=== PATIENT | female | born 1940 | race Caucasian/White ===

== ENCOUNTER 2016-03-22 11:51 | Inpatient (IN) | payer MEDICARE, BC ==
[~2016-03-22] VITALS: Ht 165.1 cm; Wt 84.3 kg
[~2016-03-22 11:51] MED LIST: AZO-CRANBERRY450 MG REC; BIOTIN1 MG PO; CENTRUM1 TAB PO; FISH OIL CONC1000 MG PO; FOLIC ACID PO; GLUCOSAMINE PO; GLUCOSAMINE/CHONDROI PO; GRAPE SEED EXTRACT; HCTZ 25MG TAB25 MG PO; HCTZ 25MG25 MG PO; IBUPROFEN600 MG PO; NASONEX SPRAY NAS; NASONEX SPRAY17 GM NS; OSCAL 500MG/VI500 MG PO; PROTONIX 40MG T40 MG PO; REGLAN 5MG T5 MG/TAB PO; TOPROL XL 50MG50 MG PO; TOPROL XL50 MG PO; TUMERIC PO; TYLENOL 325MG325 MG PO; VITAMIN D; VITAMIN E-400200 IU PO; [UNRECOGNIZED DRUG - OTHER] PO
[2016-05-22] VITALS (11 sets, daily range): BP systolic 106–135; BP diastolic 55–72; PULSE 46–78; TEMP 98–98.2
[2016-05-23] VITALS (7 sets, daily range): BP systolic 113–128; BP diastolic 46–61; PULSE 62–79; TEMP 97.5–98.6
[2016-05-23 07:18] LABS: HEMOGLOBIN 11.3 g/dl (12.5-16.0)
[2016-05-24 05:23] VITALS: BP 119/52; PULSE 78; TEMP 98.6
[2016-05-24 06:41] LABS: HEMATOCRIT 31.7 % (37.0-47.0); HEMOGLOBIN 10.5 g/dl (12.5-16.0)
[2016-05-24 07:24] VITALS: BP 128/50; PULSE 73; TEMP 98.6
[2016-05-24 15:36] VITALS: BP 115/64; PULSE 85; TEMP 99
[2016-05-24 20:39] VITALS: BP 141/57; PULSE 84; TEMP 100.2
[2016-05-25 03:28] VITALS: BP 128/49; PULSE 73; TEMP 99
[2016-05-25 07:20] VITALS: BP 133/57; PULSE 98; TEMP 98.2
[2016-05-25 07:39] LABS: HEMATOCRIT 34.3 % (37.0-47.0); HEMOGLOBIN 11.4 g/dl (12.5-16.0)
[2016-05-25 11:38] VITALS: BP 112/63; PULSE 70; TEMP 98.3
[2016-05-25] MEDS ORDERED: NORCO 325 MG-7.1 TAB PO (13:45)
[2016-05-25] MEDS ORDERED: XARELTO10 MG PO (13:45)
[2016-05-25] MEDS ORDERED: ROXICODONE 55 MG/TAB PO (13:46)
== END 2016-05-25 14:30 | disposition home or self-care (01) | DRG 470 ==
LOC: JCC 05-22 08:35
PROVIDERS: Orthopaedic Surgery
PROC: 0SRC0J9 Replacement of Right Knee Joint with Synthetic Substitute, Cemented, Open Approach (ICD-10-PCS; principal; 2016-05-22 13:10)
DX: M17.11 Unilateral primary osteoarthritis, right knee (principal); I10 Essential (primary) hypertension; Z87.891 Personal history of nicotine dependence
CPT/HCPCS: A4315; A9284; C1713; C1776; J1100; J2250; J2405; J2704; J2765; J3010; J7120

== ENCOUNTER → 2016-04-14 | Outpatient (CLI) | payer MEDICARE, BC ==
[~2016-04-14] MED LIST changes: +FLEXERIL 1010 MG/TAB PO; +NORCO 325 MG-7.1 TAB PO; +PERCOCET 325 MG1 TA2 PO; +ROXICODONE 55 MG/TAB PO; +XARELTO10 MG PO
== END ==
LOC: MC.RAD 11:03
DX: Z12.31 Encounter for screening mammogram for malignant neoplasm of breast (principal)

== ENCOUNTER → 2016-05-15 | Outpatient (CLI) | payer MEDICARE, BC ==
[2016-05-15 14:02] LABS: HIV 1/2 Antibodies Non-Reactive; HIV-1p24 Antigen Non-Reactive
== END ==
LOC: COL.LAB 12:54
PROVIDERS: Orthopaedic Surgery
DX: Z01.812 Encounter for preprocedural laboratory examination (principal); M25.861 Other specified joint disorders, right knee

== ENCOUNTER 2016-05-18 11:03 | Outpatient (RCR) | payer MEDICARE, BC ==
[~2016-05-18 11:03] MED LIST changes: -FLEXERIL 1010 MG/TAB PO; -NORCO 325 MG-7.1 TAB PO; -PERCOCET 325 MG1 TA2 PO; -ROXICODONE 55 MG/TAB PO; -XARELTO10 MG PO
== END 2016-05-18 12:56 | disposition still patient (30) ==
LOC: MKS.ESL.PT 11:03
DX: Z01.818 Encounter for other preprocedural examination (principal); M17.11 Unilateral primary osteoarthritis, right knee
CPT/HCPCS: G8978-GP; G8979-GP; G8980-GP

== ENCOUNTER 2016-07-14 11:15 | Outpatient (RCR) | payer MEDICARE, BC ==
[~2016-07-14 11:15] MED LIST changes: +NORCO 325 MG-7.1 TAB PO; +ROXICODONE 55 MG/TAB PO; +XARELTO10 MG PO
== END 2016-07-14 12:07 | disposition home or self-care (01) ==
LOC: MKS.ESL.PT 11:15
DX: Z47.89 Encounter for other orthopedic aftercare (principal); M25.861 Other specified joint disorders, right knee
CPT/HCPCS: G0283-GP; G8978-GP; G8979-GP; G8980-GP

== ENCOUNTER 2016-11-19 09:11 | Emergency (ER) | payer MEDICARE, BC ==
[~2016-11-19] VITALS: Ht 162.6 cm; Wt 80.9 kg
[2016-11-19 09:16] VITALS: BP 141/63; TEMP 97.9
[2016-11-19 10:42] LABS: PH 6 (5-8); SQUAMOUS EPITHELIAL 0-2 /hpf; URINE APPEARANCE Clear; URINE BACTERIA None Seen /hpf; URINE BILIRUBIN Negative (NEGATIVE); URINE BLOOD Negative (NEGATIVE); URINE COLOR Yellow; URINE GLUCOSE Negative (NEGATIVE); URINE KETONE Negative (NEGATIVE); URINE RBC 0-2 /hpf; URINE UROBILINOGEN Negative (NEGATIVE); URINE WBC 0-2 /hpf
[2016-11-19] MEDS ORDERED: PERCOCET 325 MG1 TA2 PO (11:07)
[2016-11-19] MEDS ORDERED: FLEXERIL 1010 MG/TAB PO (11:07)
[2016-11-19 11:31] VITALS: PULSE 65
== END 2016-11-19 11:32 | disposition home or self-care (01) ==
LOC: COL.ER 09:11
PROVIDERS: Emergency Medicine
DX: M54.42 Lumbago with sciatica, left side (principal); X50.0XXA Overexertion from strenuous movement or load, initial encounter; I10 Essential (primary) hypertension
CPT/HCPCS: J1170

== ENCOUNTER 2017-03-27 17:21 | Emergency (ER) | payer MEDICARE, BC ==
[~2017-03-27] VITALS: Ht 165.1 cm; Wt 83.6 kg
[~2017-03-27 17:21] MED LIST changes: +FLEXERIL 1010 MG/TAB PO; +PERCOCET 325 MG1 TA2 PO
[2017-03-27 17:22] VITALS: TEMP 97.8
[2017-03-27 19:11] VITALS: BP 176/83; PULSE 74
== END 2017-03-27 19:00 | disposition home or self-care (01) ==
LOC: COL.ER 17:21
DX: S82.832A Other fracture of upper and lower end of left fibula, initial encounter for closed fracture (principal); S93.02XA Subluxation of left ankle joint, initial encounter; I10 Essential (primary) hypertension; W10.9XXA Fall (on) (from) unspecified stairs and steps, initial encounter; Y92.009 Unspecified place in unspecified non-institutional (private) residence as the place of occurrence of the external cause
CPT/HCPCS: J2405; J3010

== ENCOUNTER → 2017-07-06 | Outpatient (CLI) | payer MEDICARE, BC | LOC: MC.RAD 04-16 10:40 | DX: Z12.31 Encounter for screening mammogram for malignant neoplasm of breast (principal) ==

== ENCOUNTER 2017-08-02 13:45 | Outpatient (RCR) | payer MEDICARE, BC | END 2017-08-03 15:32 | disposition home or self-care (01) | LOC: MKS.ESL.PT 13:45 | DX: Z47.89 Encounter for other orthopedic aftercare (principal); M25.511 Pain in right shoulder; Z96.698 Presence of other orthopedic joint implants | CPT/HCPCS: G8978-GP; G8979-GP; G8980-GP ==

== ENCOUNTER → 2018-06-05 | Outpatient (CLI) | payer MEDICARE, BC | LOC: COL.RAD 09:52 | DX: J98.4 Other disorders of lung (principal) ==

== ENCOUNTER 2018-07-05 14:17 | Inpatient (IN) | payer MEDICARE, BC ==
[~2018-07-05] VITALS: Ht 172.7 cm; Wt 89.0 kg
[2018-07-05] MEDS ORDERED: COREG12.5 MG PO (15:16)
[2018-07-05] MEDS ORDERED: CELEXA 20MG20 MG/TAB (15:16)
[2018-07-05 16:16] LABS: BASO # 0.1 (0.0-0.2); BASO % 0.3 % (0.0-2.0); EOS # 0.1 (0.0-0.7); EOS % 0.3 % (0-4.0); GRAN # 18.9 (1.4-6.5); GRAN % 81.4 % (42.2-75.2); HEMATOCRIT 37.6 % (37.0-47.0); HEMOGLOBIN 12.6 g/dl (12.5-16.0); LYMPH # 1.3 (1.2-3.4); LYMPH % 5.5 % (20.0-51.0); MEAN CELL VOLUME 87 fl (80.0-100.0); MEAN CORPUSCULAR HEMOGLOBIN 29 pg (27.0-31.0); MEAN CORPUSCULAR HGB CONC 34 g/dl (33.0-37.0); MEAN PLATELET VOLUME 8.9 fl (7.4-10.4); MONO # 2.8 (0.1-0.6); MONO % 12.1 % (1.7-9.3); PLATELET COUNT 282 K/mm3 (130-400); RED BLOOD COUNT 4.32 M/mm3 (4.10-5.30); REDCELL DISTRIBUTION WIDTH-CV 13.9 % (11.5-14.5)
[2018-07-05 16:37] LABS: BILIRUBIN,TOTAL 0.6 mg/dL (0.0-1.0); CALCIUM 8.9 mg/dL (8.4-10.2); CREATININE, serum 1.27 (0.52-1.25); TOTAL PROTEIN 7.6 gm/dL (6.4-8.2)
[2018-07-05 16:53] LABS: C-REACTIVE PROTEIN 15.8 mg/dL (0.0-0.9)
--- NOTE | 2018-07-05 19:30 | NUR ---
Completed assessment, admission, and medication administration with PT; PT tolerated all cares and questions well; PT A&O x4, BS active x4; LCTA with diminished bases bilaterally; IND AMB unassissted; chronic intermittent incontinence with use of protection briefs; PT able to communicate care concerns and needs; PT verbalized full code option without intubation during interview with OPERATIONS COORDINATOR; PT able to tolerated clear snacks to tolerated medications; No further needs assessed at this time; LL ABD pain assessed 6/10 with movement or coughing; IV NC running at 125ml/hr to left wrist with INT ABX; PT assisted to comfortable position in bed with call light within reach; Will continue to monitor. CDA
[2018-07-05 20:00] VITALS: BP 129/50; PULSE 93; TEMP 98.6
[2018-07-05] MEDS ORDERED: LEXAPRO 5MG5 MG PO (21:28)
[2018-07-05] MEDS ORDERED: LEXAPRO 10MG10 MG PO (21:29)
[2018-07-05] MEDS ORDERED: HYOPHEN1 TAB PO (21:32)
[2018-07-05] MEDS ORDERED: MULTI VITAMINS1 TAB PO (21:33)
[2018-07-05] MEDS ORDERED: OSCAL 500 TAB500 MG PO (21:34)
[2018-07-05] MEDS ORDERED: VITAMIN D 400400 IU PO (21:34)
[2018-07-05] MEDS ORDERED: OMEGA-31 SGL PO (21:34)
[2018-07-05] MEDS ORDERED: HAIRSKINNAILS PO (21:35)
[2018-07-05 22:23] LABS: COLLECTION METHOD CLEAN CATCH
[2018-07-05 22:34] LABS: AMORPHOUS CRYSTAL Present /uL; MUCOUS Present /lpf; PH 5 (5-8); SQUAMOUS EPITHELIAL 0-2 /hpf; URINE APPEARANCE Turbid; URINE BACTERIA None Seen /hpf; URINE BILIRUBIN Negative (NEGATIVE); URINE BLOOD 1+ (NEGATIVE); URINE COLOR Yellow; URINE GLUCOSE Negative (NEGATIVE); URINE KETONE Trace (NEGATIVE); URINE LEUKOCYTE ESTERASE 2+ (NEGATIVE); URINE NITRATE Negative (NEGATIVE); URINE PROTEIN(semi-quant) Negative (NEGATIVE); URINE RBC None Seen /hpf
[2018-07-05 22:44] VITALS: BP 129/50; PULSE 93; TEMP 98.6
[2018-07-05 23:07] VITALS: BP 129/50; PULSE 93; TEMP 98.6
[2018-07-06] VITALS (9 sets, daily range): BP systolic 105–158; BP diastolic 46–78; PULSE 71–90; TEMP 97.8–101.2
--- NOTE | 2018-07-06 04:45 | NUR ---
PT resting in bed; Denies immedicate pain; Continues to use restroom intermittently throughout the night; CDiff positive per specimen; Contact ISO in place; NS at 125ml/hr to left wrist IV continues without compliant or redness; No further complaints at time of exit; PT able to return to a comfortable position in bed with call light within reach; Will continue to monitor. CDA
[2018-07-06 06:33] LABS: BASO # 0.1 (0.0-0.2); BASO % 0.3 % (0.0-2.0); EOS # 0.1 (0.0-0.7); EOS % 0.6 % (0-4.0); GRAN # 13.6 (1.4-6.5); GRAN % 75.2 % (42.2-75.2); HEMOGLOBIN 10.7 g/dl (12.5-16.0); LYMPH # 2.5 (1.2-3.4); LYMPH % 14.1 % (20.0-51.0); MEAN CELL VOLUME 87 fl (80.0-100.0); MEAN CORPUSCULAR HEMOGLOBIN 29 pg (27.0-31.0); MEAN CORPUSCULAR HGB CONC 33 g/dl (33.0-37.0); MEAN PLATELET VOLUME 9.5 fl (7.4-10.4); MONO # 1.7 (0.1-0.6); MONO % 9.2 % (1.7-9.3); PLATELET COUNT 255 K/mm3 (130-400); RED BLOOD COUNT 3.71 M/mm3 (4.10-5.30)
[2018-07-06 06:36] LABS: HEMATOCRIT 32.3 % (37.0-47.0)
[2018-07-06 06:43] LABS: CALCIUM 7.9 mg/dL (8.4-10.2); CREATININE, serum 1.24 (0.52-1.25); POTASSIUM 3.5 mmol/L (3.4-5.0)
--- NOTE | 2018-07-06 06:58 | NUR ---
Report given to MARYANN Crawley; No significant changes or concerns at shift change. CDA
--- NOTE | 2018-07-06 08:00 | NUR ---
PATIENT ASSESSMENT COMPLETED. SHE COMPLAINS OF NAUSEA WILL PROVIDE PRN MEDICATION. WILL TRY TO EAT A PIECE OF TOAST BEFORE SHE TAKES HER AM PILLS
--- NOTE | 2018-07-06 11:39 | NUR ---
Provided spiritual care, visited and prayed with the patient.
--- NOTE | 2018-07-06 11:57 | NUR ---
Plan: Patient plans to return home with her and DTR-law. Assessment: SW met with patient about DC plan. Patient reports that her Roland is her care support and DPOA. Patient reports that she obtain RX from [facility] and her PCP is Emerita Titus. Patient reports that her spouse of jada will transport her home. Patient declined the need or use of home health services. Patient denied the use of need for DME. Patient denies having any care concerns at this time. Action: No additional needs identified. SW educated patient on local resources.
--- NOTE | 2018-07-06 12:03 | NUR ---
PATIENT IS NAUSEATED AND COMPLAINS OF FEELING ALOT OF ABDOMEN CRAMPS. SHE IS ALSO ANXOUS, AND REQUESTED THE ATIVAN AT THIS TIME. 0.5MG IVP WAS GIVEN. DAUGHTER IN LAW AT BEDSIDE.
--- NOTE | 2018-07-06 14:30 | NUR ---
PATIENT RESTING IN BED.
--- NOTE | 2018-07-06 15:21 | NUR ---
PATIENT SLEEPING IN THE BED. NO SIGNS OF DISTRESS NOTED
--- NOTE | 2018-07-06 17:29 | NUR ---
PATIENT STILL HAS SOME NAUSEA. SHE IS WILLING TO TAKE HER ORAL MEDICATIONS AND REQUESTED PRN TYLENOL FOR ABDOMEN PAIN - THIS WORSENS WITH ACTIVITY. SHE IS VERY TIRED. ALERT AND ORIENTED. EASILY FALLS BACK TO SLEEP.
--- NOTE | 2018-07-06 22:52 | NUR ---
Completed assessment and medication administration; PT tolerated all cares well; reported fever addressed and reported to on-call; No free water continues; PT reported on-going frequent stools with intermittent abdominal cramping to left side rated between 4-6; decrease in nausea with administration of PRN medication; PT A&Ox4, BS active x4, LTAB with bilateral diminished bases; NS continues to left wrist IV at 125ml/hr; room temperature and multiple blankets removed r/t increase body temperature; No further reported or assessed concerns at time of exit; PT assisted to comfortable position in bed with call light within reach; Will continue to monitor. CDA
[2018-07-07 04:04] VITALS: BP 142/47; PULSE 90; TEMP 97.9
--- NOTE | 2018-07-07 04:19 | NUR ---
PT resting well in bed; IV changed to 22G LFA; PT continues to have the need to toilet multiple times thoughout the night with minimal output; LLQ pain continues without requested PRN pain medication; NS continues to IV at 125ml/hr; No further needs at time of exit; PT returned to a comfortable position in bed with call light within reach; Will continue to monitor. CDA
--- NOTE | 2018-07-07 06:52 | NUR ---
Report given to MARYANN Crawley; No significant changes or concerns at shift change. CDA
[2018-07-07 07:24] VITALS: BP 140/60; PULSE 85; TEMP 99.5
--- NOTE | 2018-07-07 08:30 | NUR ---
PATIENT IN THE RESTROOM AGAIN. THIS IS THE THIRD TIME THAT I HAVE TRIED TO COME IN THE ROOM AND SHE IS IN THE RESTROOM. SHE STATES SHE IS IN AND OUT OF THE RESTROOM ALOT, VOLUME OF STOOL HAS INCREASED. SHE IS NAUSEATED AND REQUESTING MEDICATION. I HAVE CALLED PHARMACY TO HAVE THEM BRING ME PHENERGAN. SHE STATES SHE JUST DOESN'T FEEL WELL.
[2018-07-07 09:18] LABS: MEAN CELL VOLUME 86 fl (80.0-100.0); MEAN CORPUSCULAR HEMOGLOBIN 29 pg (27.0-31.0); MEAN CORPUSCULAR HGB CONC 34 g/dl (33.0-37.0); MEAN PLATELET VOLUME 9.1 fl (7.4-10.4); PLATELET COUNT 263 K/mm3 (130-400); RED BLOOD COUNT 3.76 M/mm3 (4.10-5.30)
--- NOTE | 2018-07-07 09:20 | NUR ---
PATIENT ASSESSMENT COMPLETED. PRN PHENERGAN GIVEN AT THIS TIME PER REQUEST. SHE IS STILL NAUSEATED AND DOESN'T WANT TO TAKE ANY OTHER MEDICATIONS EXCEPT CARVIDEL AND LEXAPRO. FALLS BACK TO SLEEP EASILY. REPORTS THE ROOM IS HOT AND NEEDS MORE AIR FLOW. I WILL PULL THE CURTAIN AND LEAVE THE DOOR OPEN TO GET SOME AIR IN THE ROOM. UNABLE TO PUT A FAN IN THE ROOM SINCE SHE IS IN ISOLATION. SHE DENIES WANTING TO EAT ANY CLEAR LIQUIDS, SHE IS DRINKING CLEAR PEDIALYTE THAT HER DAUGHTER IN LAW BROUGHT IN.
[2018-07-07 09:25] LABS: HEMATOCRIT 32.5 % (37.0-47.0)
[2018-07-07 09:30] LABS: CALCIUM 7.6 mg/dL (8.4-10.2); POTASSIUM 3.4 mmol/L (3.4-5.0)
[2018-07-07 09:58] LABS: BAND 23 % (0-10); LYMPHOCYTE 7 % (20.0-51.0); NEUTROPHILS 60 % (42.0-75.2)
[2018-07-07 09:59] LABS: PLATELET ESTIMATE NORMAL (NORMAL)
[2018-07-07 11:14] VITALS: BP 131/43; PULSE 82; TEMP 98.5
[2018-07-07 15:14] VITALS: BP 123/48; PULSE 78; TEMP 99
--- NOTE | 2018-07-07 15:28 | NUR ---
STOOL SPECIMEN IS COLLECTED AND SENT TO THE LAB BY ASHLYN LINARES
[2018-07-07 20:13] VITALS: BP 138/55; PULSE 78; TEMP 99.3
[2018-07-08] VITALS (7 sets, daily range): BP systolic 114–151; BP diastolic 42–55; PULSE 67–83; TEMP 98.6–99.3
--- NOTE | 2018-07-08 00:17 | NUR ---
Patient denies having pain and discomfort at this time. Reports having 3 loose stools so far this shift. Voices no needs or concerns at this time. Continues on contact isolation. Resting in bed with eyes closed at this time. Call light is within reach.
--- NOTE | 2018-07-08 03:01 | NUR ---
Patient had another episode of loose stools. Does report that even though she was having a loose stool, she does "somehow feel a little better." Denies having pain and discomfort. Resting in bed with eyes closed at this time. Call light is within reach.
--- NOTE | 2018-07-08 06:17 | NUR ---
Continues to have loose stools throughout the night. Has had 1 more since last note. Voices no needs or concerns at this time. Resting in bed with eyes closed at this time. Call light is within reach.
[2018-07-08 06:30] LABS: BASO % 0.3 % (0.0-2.0); EOS # 0.3 (0.0-0.7); EOS % 1.9 % (0-4.0); GRAN # 11.3 (1.4-6.5); GRAN % 73.6 % (42.2-75.2); HEMOGLOBIN 10.7 g/dl (12.5-16.0); LYMPH # 2.3 (1.2-3.4); LYMPH % 15.3 % (20.0-51.0); MEAN CELL VOLUME 86 fl (80.0-100.0); MEAN CORPUSCULAR HEMOGLOBIN 29 pg (27.0-31.0); MEAN CORPUSCULAR HGB CONC 34 g/dl (33.0-37.0); MONO # 1.2 (0.1-0.6); PLATELET COUNT 250 K/mm3 (130-400); RED BLOOD COUNT 3.66 M/mm3 (4.10-5.30); REDCELL DISTRIBUTION WIDTH-CV 14.2 % (11.5-14.5)
[2018-07-08 06:31] LABS: HEMATOCRIT 31.4 % (37.0-47.0)
[2018-07-08 06:42] LABS: ALBUMIN 2.8 gm/dL (3.5-5.0); BILIRUBIN,TOTAL 0.3 mg/dL (0.0-1.0); CALCIUM 7.5 mg/dL (8.4-10.2); CREATININE, serum 0.9 (0.52-1.25); POTASSIUM 3.1 mmol/L (3.4-5.0); TOTAL PROTEIN 5.6 gm/dL (6.4-8.2)
--- NOTE | 2018-07-08 12:55 | NUR ---
Patient assessment complete. Patient has had an echo earlier and walked laps in the room with PT. Patient states she gets a little SOB after a few laps. Patient denies chest pain, numbness, tingling and pain. Patient was nauseous this morning and had a little bit of a hard time with morning medications. Encouraging her to drink pedialyte, daughter in law brought in. States she is hungry but nauseous.
--- NOTE | 2018-07-08 20:21 | NUR ---
PT RESTING IN BED A+OX4. REPORTS NO PAIN. REPORTS A LOOSE STOOL AT THIS TIME. REPORTS SOA WHEN WALKING TO BR. NO NEEDS AT TIS TIME. SHIFT ASSESSMENT COMPLETE. CALL LIGHT INREACH
[2018-07-09] VITALS (7 sets, daily range): BP systolic 125–174; BP diastolic 49–67; PULSE 68–79; TEMP 98.1–99.1
--- NOTE | 2018-07-09 01:29 | NUR ---
PT RESTING A+OX4. REFUSED IV CHANGE AT THIS TIME. REPORT A LOOSE BM AT 0000. NO PAIN. NO NEEDS. CALL LIGHT IN REACH .
--- NOTE | 2018-07-09 05:48 | NUR ---
PT HAD AN UNEVENTFUL NIGHT. REPORTS NO PAIN. NO N/V. REPORTS 2 LOOSE STOOLS THROUGOUT NIGHT. IV FLUSHES WELL, NO REDNESS, NO SWELLING. PT EDUCATED ON WATER RESTRICTION. NO NEEDS AT THIS TIME. CALL LIGHT IN REACH.
[2018-07-09 06:17] LABS: HEMOGLOBIN 10.4 g/dl (12.5-16.0); MEAN CELL VOLUME 85 fl (80.0-100.0); MEAN CORPUSCULAR HEMOGLOBIN 29 pg (27.0-31.0); MEAN CORPUSCULAR HGB CONC 33 g/dl (33.0-37.0); MEAN PLATELET VOLUME 9.5 fl (7.4-10.4); PLATELET COUNT 288 K/mm3 (130-400); RED BLOOD COUNT 3.64 M/mm3 (4.10-5.30); REDCELL DISTRIBUTION WIDTH-CV 14.2 % (11.5-14.5)
[2018-07-09 06:18] LABS: HEMATOCRIT 31.1 % (37.0-47.0)
[2018-07-09 06:28] LABS: CALCIUM 7.9 mg/dL (8.4-10.2); CREATININE, serum 0.9 (0.52-1.25); POTASSIUM 3.7 mmol/L (3.4-5.0)
--- NOTE | 2018-07-09 06:51 | NUR ---
report given to MARYANN Patel. pt sleeping at this time.
[2018-07-09 08:12] LABS: BAND 8 % (0-10); EOSINOPHIL 1 % (0-4); LYMPHOCYTE 28 % (20.0-51.0); NEUTROPHILS 52 % (42.0-75.2); PLATELET ESTIMATE NORMAL (NORMAL)
--- NOTE | 2018-07-09 09:24 | NUR ---
Patient sitting in bed on entry. Shift assessment complete. Lungs clear bilaterally, regular heart rate and rhythm. Denies dizziness aside from first sitting up. Patient slept well, "got up once around midnight to use bathroom". Was able to tolerate 1/4 cup rice and mashed potatoes for dinner. Patient states "i look like I am 6 months . I am gassy". Patient had bowel movement, more "productive" than they have been and "darker". Patient has steady gait and independent. Patient does feel "a little nauseous but better". at bedside and patient attempting to eat breakfast. IV LFA is CDI. Call light within reach.
--- NOTE | 2018-07-09 11:00 | NUR ---
SW attended clinical rounds. Patient is stil planning to return home once she is discharged. PT has seen patient and will continue to see her while she's admitted but they do not recommend any post acute rehab or home health.
--- NOTE | 2018-07-09 12:34 | NUR ---
Patient sleeping in bed. Informed of new IV start, prior IV . 22g to the right forearm. One attempt. flushed well. Informed patient to call if there were any signs of burning or infiltration.
--- NOTE | 2018-07-09 16:34 | NUR ---
pATIENT IS RESTING IN BED, MOVING TO CHAIR TO CHANGE POSITIONS. STATES SHES IS NOT IN PAIN, JUST STILL A LITTLE NAUSEOUS. hAS BEEN ABLE TO GET DOWN SOME JELLO THIS AFTERNOON. HAS HAD ONE BOWEL MOVEMENT. BM IS DARKER AND LOOSE. BM's ARE BECOMING FURTHER APART. NO OTHER NEEDS AT THIS TIME.
--- NOTE | 2018-07-09 19:40 | NUR ---
PT resting in bed A+OX$. reports no pain. some nausea all day. reports abd feeling bloated. pt had a loose BM at 1900. no needs at this time. shoft assessment complete. call light in reach
[2018-07-10 03:40] VITALS: BP 152/62; PULSE 69; TEMP 98.9
--- NOTE | 2018-07-10 05:02 | NUR ---
pt had an uneventful night. reports no pain. reports bloating and nausea- prn zofran given. slept throughout night. pt reports one loose BM during night. no needs at this time. this nurse has no concers at this time
[2018-07-10 05:55] LABS: MEAN CELL VOLUME 84 fl (80.0-100.0); MEAN CORPUSCULAR HEMOGLOBIN 29 pg (27.0-31.0); MEAN CORPUSCULAR HGB CONC 34 g/dl (33.0-37.0); MEAN PLATELET VOLUME 9.3 fl (7.4-10.4); PLATELET COUNT 317 K/mm3 (130-400); RED BLOOD COUNT 3.79 M/mm3 (4.10-5.30); REDCELL DISTRIBUTION WIDTH-CV 14.4 % (11.5-14.5)
[2018-07-10 06:12] LABS: CALCIUM 8.2 mg/dL (8.4-10.2); CREATININE, serum 0.84 (0.52-1.25); POTASSIUM 3.3 mmol/L (3.4-5.0)
--- NOTE | 2018-07-10 07:12 | NUR ---
report given to MARYANN Brower
[2018-07-10 07:17] VITALS: BP 140/51; PULSE 70; TEMP 99.1
[2018-07-10 07:24] LABS: EOSINOPHIL 2 % (0-4); LYMPHOCYTE 17 % (20.0-51.0); NEUTROPHILS 75 % (42.0-75.2); PLATELET ESTIMATE NORMAL (NORMAL)
--- NOTE | 2018-07-10 09:10 | NUR ---
Pt alert and oriented. Pt states she is still nauseaous but no actual vomitting this am. Pt able to drink apple juice and keep down some crackers. Pt remains on contact precautions and abx tx for Cdiff. Pt had a soft BM x1 this am and none through the night per pt. Pt reports bottom is red and using cream and wipes. Pt IV patent and no infiltration or redness noted. Pt has call light in reach and denies needs. Pt states Zofran does not help with nausea.
--- NOTE | 2018-07-10 10:00 | NUR ---
Pt IV infiltrated when flushed with NS. IV RF discontinued. Tip intact and 1 on scale of infiltration and 0 phlebitis. New IV in LW 22g started x 1 attempt. No redness or infiltration noted. Pt has call light in reach and denies needs.
[2018-07-10 11:53] VITALS: BP 135/61; PULSE 66; TEMP 98.8
[2018-07-10 15:42] VITALS: BP 135/56; PULSE 69; TEMP 99.1
[2018-07-10 19:27] VITALS: BP 148/62; PULSE 70; TEMP 98.9
--- NOTE | 2018-07-10 19:32 | NUR ---
Pt alert and oriented. Pt stable but nausea remains but not increased. Pt tolerating PO bland foods. Pt IV patent no redness or infiltration. Pt denies pain. Pt had 2 small soft stools this shift. Pt denies diarrhea. Pt has call light in reach and remains on contact precautions.
--- NOTE | 2018-07-10 19:58 | NUR ---
PT RESTING IN BED A+OX4. REPORTS NO PAIN. NO NAUSEA AT THIS TIME. ABD BLOATING REPROTED. SHIFT ASSESSMENT COMPLETE. PT REPORTS NO NEEDS AT THIS TIME. CALL LIGHT IN REACH
[2018-07-10 23:31] VITALS: BP 152/66; PULSE 78; TEMP 99.3
[2018-07-11 03:29] VITALS: BP 154/55; PULSE 66; TEMP 98.6
[2018-07-11 06:19] LABS: CALCIUM 8.4 mg/dL (8.4-10.2); CREATININE, serum 0.87 (0.52-1.25)
--- NOTE | 2018-07-11 06:23 | NUR ---
pt had an uneventful night. reports no pain. had some heartburn during night, GI cocktail given, reported relief. reports abd feeling bloated. pt reports one semi loose stool after dinner. contact precautions in place. pt on Room air. no needs at this time. call light in reach
--- NOTE | 2018-07-11 07:15 | NUR ---
Received report, went to meet patient who is observed laying on left slide with eyes closed. Respirations are observed to be even and non-labored. Call light is within reach.
--- NOTE | 2018-07-11 07:33 | NUR ---
report given to MARYANN Hidalgo. no neeeds at this time.
[2018-07-11 08:02] VITALS: BP 151/65; PULSE 72; TEMP 98.8
[2018-07-11] MEDS ORDERED: VANCOCIN H125 MG/CAP PO (09:33)
[2018-07-11] MEDS ORDERED: COREG 25MG25 MG/TAB PO (09:33)
[2018-07-11] MEDS ORDERED: PEPCID 20MG TAB20 MG PO (09:34)
--- NOTE | 2018-07-11 10:17 | NUR ---
LILLIAN attended clinical rounds. Patient will discharge home today. LILLIAN presented IM to patient. She signed but did not request a copy.
== END 2018-07-11 12:20 | disposition home or self-care (01) | DRG 372 ==
LOC: COL.ER 14:17 → MEDICAL 18:26
PROVIDERS: Emergency Medicine; Nurse Practitioner Family; Physician Assistant; ADMIT Hospitalist
DX: A04.71 Enterocolitis due to Clostridium difficile, recurrent (principal); E87.1 Hypo-osmolality and hyponatremia; Z66 Do not resuscitate; I12.9 Hypertensive chronic kidney disease with stage 1 through stage 4 chronic kidney disease, or unspecified chronic kidney disease; N18.9 Chronic kidney disease, unspecified; K21.9 Gastro-esophageal reflux disease without esophagitis; Z85.828 Personal history of other malignant neoplasm of skin; Z87.891 Personal history of nicotine dependence; E87.6 Hypokalemia
CPT/HCPCS: 99223-AI; 99232-AI; 99233-AI; 99239; J0744; J1644; J2060; J2405; J2550; J7030; Q9967

== ENCOUNTER → 2018-07-18 | Outpatient (CLI) | payer MEDICARE, BC ==
[~2018-07-18] MED LIST changes: +CELEXA 20MG20 MG/TAB; +COREG 25MG25 MG/TAB PO; +COREG12.5 MG PO; +HAIRSKINNAILS PO; +HYOPHEN1 TAB PO; +LEXAPRO 10MG10 MG PO; +LEXAPRO 5MG5 MG PO; +MULTI VITAMINS1 TAB PO; +OMEGA-31 SGL PO; +OSCAL 500 TAB500 MG PO; +PEPCID 20MG TAB20 MG PO; +VANCOCIN H125 MG/CAP PO; +VITAMIN D 400400 IU PO
== END ==
LOC: MC.RAD 15:18
DX: Z12.31 Encounter for screening mammogram for malignant neoplasm of breast (principal)

== ENCOUNTER → 2018-08-21 | Outpatient (CLI) | payer MEDICARE, BC | LOC: COL.RAD 07:53 | DX: K52.9 Noninfective gastroenteritis and colitis, unspecified (principal); A04.72 Enterocolitis due to Clostridium difficile, not specified as recurrent; K58.0 Irritable bowel syndrome with diarrhea | CPT/HCPCS: A9541 ==

== ENCOUNTER 2018-09-12 13:03 | Outpatient (RCR) | payer MEDICARE, BC | END 2018-12-11 | disposition home or self-care (01) | LOC: WSST | DX: R13.10 Dysphagia, unspecified (principal); R12 Heartburn ==

== ENCOUNTER → 2019-01-24 | Outpatient (CLI) | payer MEDICARE, BC | LOC: COL.PUL 01-01 10:00 | DX: R05 Cough (principal) ==

== ENCOUNTER → 2019-10-28 | Outpatient (CLI) | payer MEDICARE, BC | LOC: COL.RAD 13:14 | DX: N30.20 Other chronic cystitis without hematuria (principal) ==

== ENCOUNTER 2020-10-18 04:21 | Emergency (ER) | payer MEDICARE, BC ==
[~2020-10-18] VITALS: Ht 162.6 cm; Wt 93.2 kg
[2020-10-18 04:56] VITALS: TEMP 98.7
[2020-10-18 05:35] LABS: BASO % 0.3 % (0.0-2.0); EOS # 0.4 (0.0-0.7); EOS % 4.8 % (0-4.0); GRAN # 5.6 (1.4-6.5); GRAN % 63.6 % (42.2-75.2); HEMOGLOBIN 11.3 g/dl (12.5-16.0); LYMPH # 1.6 (1.2-3.4); LYMPH % 18.4 % (20.0-51.0); MEAN CELL VOLUME 89 fl (80.0-100.0); MEAN CORPUSCULAR HEMOGLOBIN 29 pg (27.0-31.0); MEAN CORPUSCULAR HGB CONC 33 g/dl (33.0-37.0); MEAN PLATELET VOLUME 9.4 fl (7.4-10.4); MONO # 1.1 (0.1-0.6); MONO % 12.4 % (1.7-9.3); PLATELET COUNT 266 K/mm3 (130-400); RED BLOOD COUNT 3.91 M/mm3 (4.10-5.30); REDCELL DISTRIBUTION WIDTH-CV 14.5 % (11.5-14.5)
[2020-10-18 05:37] LABS: HEMATOCRIT 34.6 % (37.0-47.0)
[2020-10-18 05:45] LABS: ALBUMIN 3.5 gm/dL (3.5-5.0); BILIRUBIN,TOTAL 0.7 mg/dL (0.0-1.0); CALCIUM 9.4 mg/dL (8.4-10.2); CREATININE, serum 1.1 (0.52-1.25); POTASSIUM 4.3 mmol/L (3.4-5.0); TOTAL PROTEIN 6.8 gm/dL (6.4-8.2)
[2020-10-18 07:09] LABS: COLLECTION METHOD CLEAN CATCH
[2020-10-18 07:17] LABS: PH 6 (5-8); SQUAMOUS EPITHELIAL None Seen /hpf; URINE APPEARANCE Clear; URINE BACTERIA None Seen /hpf; URINE BILIRUBIN Negative (NEGATIVE); URINE BLOOD Negative (NEGATIVE); URINE COLOR Yellow; URINE GLUCOSE Negative (NEGATIVE); URINE KETONE Trace (NEGATIVE); URINE LEUKOCYTE ESTERASE Negative (NEGATIVE); URINE NITRATE Negative (NEGATIVE); URINE PROTEIN(semi-quant) Negative (NEGATIVE); URINE RBC 0-2 /hpf; URINE UROBILINOGEN Negative (NEGATIVE); URINE WBC None Seen /hpf
[2020-10-18 08:25] VITALS: BP 167/92; PULSE 83
== END 2020-10-18 08:25 | disposition home or self-care (01) ==
LOC: COL.ER 04:21
PROVIDERS: Personal Emergency Response Attendant
DX: M96.89 Other intraoperative and postprocedural complications and disorders of the musculoskeletal system (principal); G89.18 Other acute postprocedural pain; K21.9 Gastro-esophageal reflux disease without esophagitis; I12.9 Hypertensive chronic kidney disease with stage 1 through stage 4 chronic kidney disease, or unspecified chronic kidney disease; N18.9 Chronic kidney disease, unspecified; Z88.2 Allergy status to sulfonamides; Z88.0 Allergy status to penicillin; Z79.899 Other long term (current) drug therapy; Z88.1 Allergy status to other antibiotic agents

== ENCOUNTER 2021-08-01 13:58 | Outpatient (RCR) | payer MEDICARE, BC | END 2021-08-06 | disposition home or self-care (01) | LOC: WSST | DX: R41.3 Other amnesia (principal) ==

== ENCOUNTER → 2021-09-06 | Outpatient (RCR) | payer MEDICARE, BC | END | disposition home or self-care (01) | LOC: WSST | DX: R41.3 Other amnesia (principal) ==

== ENCOUNTER 2021-09-13 10:54 | Outpatient (RCR) | payer MEDICARE, BC | END 2021-10-06 | disposition home or self-care (01) | LOC: WSST | DX: R41.3 Other amnesia (principal) ==

== ENCOUNTER 2023-11-21 13:46 | Emergency (ER) | payer MEDICARE, BC ==
[~2023-11-21] VITALS: Ht 162.6 cm; Wt 88.6 kg
[2023-11-21 13:52] VITALS: TEMP 98.1
[2023-11-21 15:00] LABS: BASO % 0.7 % (0.0-2.0); EOS # 0.4 K/mm3 (0.0-0.7); EOS % 7.2 % (0.0-4.0); GRAN # 3.5 K/mm3 (1.4-6.5); GRAN % 56.3 % (42.2-75.2); HEMATOCRIT 37.6 % (37.0-47.0); HEMOGLOBIN 12.5 g/dl (12.5-16.0); LYMPH # 1.3 K/mm3 (1.2-3.4); LYMPH % 21.2 % (20.0-51.0); MEAN CELL VOLUME 87 fl (80.0-100.0); MEAN CORPUSCULAR HEMOGLOBIN 29 pg (27-31); MEAN CORPUSCULAR HGB CONC 33 g/dl (33.0-37.0); MEAN PLATELET VOLUME 9.3 fl (7.4-10.4); MONO # 0.9 K/mm3 (0.1-0.6); MONO % 14.4 % (1.7-9.3); PLATELET COUNT 276 K/mm3 (130-400); REDCELL DISTRIBUTION WIDTH-CV 13.9 % (11.5-14.5)
[2023-11-21 15:15] LABS: ALANINE AMINOTRANSFERASE 12 U/L (0-55); ALBUMIN 3.8 g/dL (3.4-4.8); ALKALINE PHOSPHATASE 78 U/L (40-150); ANION GAP 11 mmol/L (7-16); AST,SGOT 18 U/L (5-34); BILIRUBIN,TOTAL 0.4 mg/dL (0.2-1.2); BLOOD UREA NITROGEN 19 mg/dL (10-20); CHLORIDE 102 mEq/L (98-107); CREATININE, serum 1.81 mg/dL (0.57-1.11); GLUCOSE 113 mg/dL (70-99); POTASSIUM 4.2 mEq/L (3.5-4.5); SODIUM 134 mEq/L (136-145); TOTAL PROTEIN 7.1 g/dl (6.2-8.1)
[2023-11-21 15:32] LABS: TROPONIN-I < 0.010 ng/mL (0.00-0.033)
[2023-11-21 16:07] VITALS: BP 138/62; PULSE 58
== END 2023-11-21 16:19 | disposition home or self-care (01) ==
LOC: COL.ER 13:46
PROVIDERS: Personal Emergency Response Attendant
DX: R53.81 Other malaise (principal); R06.00 Dyspnea, unspecified; R53.1 Weakness; Z87.891 Personal history of nicotine dependence